=== PATIENT | female | born 2000 | race Caucasian/White ===

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

== ENCOUNTER 2019-10-10 16:54 | Emergency (ER) | payer MEDICAID ==
[~2019-10-10] VITALS: Ht 170.2 cm; Wt 58.0 kg
[~2019-10-10 16:54] MED LIST changes: +DOCU-131 PO; -DOCU-30 PO
--- NOTE | 2019-10-10 18:36 | NUR ---
[employer]OR INSTALLER: PT TO ROOM FROM [facility].
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
[2019-10-10] MEDS ORDERED: KETOROLAC 60 MG/2 ML ONE (19:24)
[2019-10-10] MEDS ORDERED: KETOROLAC 30 MG/1 ML IM ONE (19:30)
--- NOTE | 2019-10-10 19:30 | NUR ---
MEDS ADMIN PER MAR
--- NOTE | 2019-10-10 20:09 | NUR ---
REPORT GIVEN TO FERDINAND SAVAGE
--- NOTE | 2019-10-10 20:12 | NUR ---
ASSUMING CARE OF PATIENT. PT SITTING UP IN [facility] NOTED. MOTHER AT BEDSIDE. CHART UP FOR RECHECK
[2019-10-10] MEDS ORDERED: DEXAMETHASONE 4 MG TABLET PO ONE (20:30)
[2019-10-10] MEDS ORDERED: DEXAMETHASONE 4 MG TABLET ONE (20:36)
--- NOTE | 2019-10-10 20:58 | NUR ---
DC EDUCATION PROVIDED, PT DEMONSTRATES UNDERSTANDING PT AMBULATED STEADILY TO DC WITH RN AND MOTHER
[2019-10-10 20:59] VITALS: BP 119/80
== END 2019-10-10 21:02 | disposition home or self-care (01) ==
LOC: ED 20:05
DX: M94.0 Chondrocostal junction syndrome [Tietze] (principal); R07.89 Other chest pain
CPT/HCPCS: 71046; 93005; 96372; 99283; J1885